=== PATIENT | male | born 2000 | race American Indian/Alaskan Native ===

== ENCOUNTER 2021-09-05 09:45 | Emergency (ER) | payer SELFPAY ==
--- NOTE | 2021-09-05 13:15 | Emergency Department Report ---
- General Chief complaint: Skin Rash Stated complaint: STD CHECK Time Seen by Provider: 09/05/21 13:05 Source: patient Mode of arrival: Ambulatory Limitations: No Limitations - History of Present Illness Initial comments: 20-year-old black male with no past medical history presents to the emergency department for evaluation of 4-day history of sores on the inside of his mouth and around his mouth and chin. He states that he has been performing oral sex but is not sure if his partner has had any symptoms. He denies any urinary symptoms, fever, abdominal pain. MD complaint: rash -: Gradual, days(s) (4) Location: face Severity: moderate Severity scale (0 -10): 5 Quality: aching Consistency: constant Associated symptoms: chills Treatments Prior to Arrival: none - Related Data Previous Rx's Medication Instructions Recorded Last Taken Type Valacyclovir HCl [Valacyclovir] 1,000 mg PO BID #14 tab 09/05/21 Unknown Rx Allergies Allergy/AdvReac Type Severity Reaction Status Date / Time shellfish derived Allergy Unknown Verified 09/05/21 10:06 Abscess Boil HPI - HPI Chief Complaint: Skin Rash Stated Complaint: STD CHECK Time Seen by Provider: 09/05/21 13:05 Home Medications: Previous Rx's Medication Instructions Recorded Last Taken Type Valacyclovir HCl [Valacyclovir] 1,000 mg PO BID #14 tab 09/05/21 Unknown Rx Allergies/Adverse Reactions: Allergies Allergy/AdvReac Type Severity Reaction Status Date / Time shellfish derived Allergy Unknown Verified 09/05/21 10:06 ED Review of Systems ROS: Stated complaint: STD CHECK Other details as noted in HPI Comment: All other systems reviewed and negative Constitutional: chills. denies: fever, malaise, weakness Eyes: denies: eye discharge, vision change ENT: denies: ear pain, throat pain, dental pain, congestion Respiratory: denies: cough, shortness of breath Cardiovascular: denies: chest pain, palpitations Gastrointestinal: denies: abdominal pain, nausea, vomiting, diarrhea, hematemesis, melena Genitourinary: denies: urgency, dysuria, frequency, hematuria, discharge, test icular pain Musculoskeletal: denies: back pain Skin: rash, lesions Neurological: denies: headache, weakness ED Past Medical Hx - Social History Smoking Status: Never Smoker Substance Use Type: None - Medications Home Medications: Home Medications Medication Instructions Recorded Confirmed Last Taken Type Valacyclovir HCl [Valacyclovir] 1,000 mg PO BID #14 tab 09/05/21 Unknown Rx ED Physical Exam - General Limitations: No Limitations General appearance: alert, in no apparent distress - Head Head exam: Present: atraumatic, normocephalic - Expanded Head Exam Expanded 1 - Noted to have herpetic lesions in various stages of healing to the area. Area noted to be warm and painful to touch. Drainage noted from some vesicles. - Eye Eye exam: Present: normal appearance. Absent: scleral icterus, conjunctival injection, periorbital swelling, periorbital tenderness - Expanded ENT Exam Expanded Mouth exam: Present: other (Noted to have lesions throughout entire mouth in various stages of healing.) - Neck Neck exam: Present: normal inspection, lymphadenopathy. Absent: tenderness - Respiratory Respiratory exam: Absent: respiratory distress - Cardiovascular Cardiovascular Exam: Present: tachycardia - GI/Abdominal GI/Abdominal exam: Present: soft. Absent: distended - Extremities Exam Extremities exam: Present: normal inspection, normal capillary refill. Absent: pedal edema, joint swelling, calf tenderness - Back Exam Back exam: Present: normal inspection. Absent: CVA tenderness (R), CVA tenderness (L) - Neurological Exam Neurological exam: Present: alert, oriented X3, CN II-XII intact, normal gait - Psychiatric Psychiatric exam: Present: normal affect, normal mood - Skin Skin exam: Present: warm, dry, normal color, vesicles (Noted inside and around mouth and on chin.) ED Course Vital Signs 09/05/21 10:02 Temperature 99.9 F H Pulse Rate 106 H Respiratory 18 Rate Blood Pressure 141/78 [Left] O2 Sat by Pulse 98 Oximetry ED Medical Decision Making - Medical Decision Making 20-year-old black male with no past medical history presents to the emergency department for evaluation of 4-day history of sores on the inside of his mouth and around his mouth and chin. He states that he has been performing oral sex but is not sure if his partner has had any symptoms. He denies any urinary symptoms, fever, abdominal pain. Physical exam consistent with herpetic lesions on the inside of mouth and outside of mouth and on chin. Patient will be treated with 7-day course of of valacyclovir 1000 mg twice a day. He is advised to have partner checked and treated, practice safe sex, and follow-up in [facility] for further evaluation and management. He is advised to return to the emergency department as needed. He verbalizes understanding of and agreement with plan of care. Critical care attestation.: If time is entered above; I have spent that time in minutes in the direct care of this critically ill patient, excluding procedure time. ED Disposition Clinical Impression: Herpes Disposition: 01 HOME / SELF CARE / HOMELESS Is pt being admited?: No Does the pt Need Aspirin: No Condition: Stable Instructions: Cold Sore, [id number], Genital Herpes Additional Instructions: Take medication as prescribed. Practice safe sex. Have partner evaluated and t reated. Follow-up at [facility] for further evaluation and management. Return to the emergency department as needed. Prescriptions: Valacyclovir HCl [Valacyclovir] 1,000 mg PO BID #14 tab Referrals: [facility] Depart [Outside] - 3-5 Days Time of Disposition: 13:22
[2021-09-05 14:50] VITALS: BP 120/88
[2021-09-05 15:30] LABS: Mucus,Urine 3+ /HPF
[2021-09-05 15:45] LABS: Color,Urine Yellow (Yellow)
[2021-09-05 15:46] LABS: Bilirubin,Urine Negative (Negative); Blood,Urine Negative (Negative); Urobilinogen,Urine < 2.0 mg/dL (<2.0)
== END 2021-09-05 15:10 | disposition home or self-care (01) ==
LOC: ED 09:45
DX: B00.9 Herpesviral infection, unspecified (principal); Z91.013 Allergy to seafood
CPT/HCPCS: 81001; 87086; 99283